=== PATIENT | male | born 1990 | race Two or more races ===

== ENCOUNTER → 2018-09-14 | Emergency (ER) | payer OTHER ==
[~2018-09-14] VITALS: Ht 180.3 cm; Wt 77.1 kg
== END | disposition left against medical advice (07) ==
LOC: ER 15:50
DX: E86.0 Dehydration (principal); F10.129 Alcohol abuse with intoxication, unspecified

== ENCOUNTER 2020-03-02 13:20 | Emergency (ER) | payer OTHER ==
[~2020-03-02] VITALS: Ht 180.3 cm; Wt 70.8 kg
== END 2020-03-02 15:36 | disposition home or self-care (01) ==
LOC: ER 13:20
DX: S01.82XA Laceration with foreign body of other part of head, initial encounter (principal); W22.8XXA Striking against or struck by other objects, initial encounter; Y93.89 Activity, other specified; Y92.413 State road as the place of occurrence of the external cause; Y99.8 Other external cause status